=== PATIENT | female | born 1980 | race African-American/Black ===

== ENCOUNTER 2020-07-05 02:55 | Emergency (ER) | payer OTHER, SELFPAY ==
[2020-07-05 03:00] VITALS: BP 110/69; PULSE 85; RESP 20; TEMP 36.9; O2SAT 100
[2020-07-05] MEDS: SODIUM CHLORIDE 0.9% IV 1,000 ML 999 ML IV CONT (03:42)
--- NOTE | 2020-07-05 04:36 | ED_ITS ---
HPI - Anxiety General Chief Complaint: Anxiety Stated Complaint: anxiety Time Seen by Provider: 07/05/20 03:16 History of Present Illness HPI narrative: Patient is a 39-year-old female who presents the ER with anxiousness and shortness of breath. Patient reports she used an edible gummy tonight and then also had a couple drinks of tequila. She was at home sitting at her table when she became acutely short of breath and could not get herself calmed down. She has no chest pain. No fevers chills or sweats. She has not had any recent infectious symptoms. Reports symptoms are gradually improving now that she has been in EMS care. Related Data Allergies Allergy/AdvReac Type Severity Reaction Status Date / Time No Known Allergies Allergy Unverified 08/14/17 16:26 Review of Systems Review of Systems: All systems reviewed & are unremarkable except as noted in HPI and below Constitutional: Constitutional: Denies chills, Denies fever(s) and Denies weakness ENT: Denies nasal congestion and Denies sore throat Cardiovascular: Cardiovascular: Denies chest pain and Denies radiating jaw, neck or arm pain Respiratory: Respiratory: Denies cough, Reports dyspnea and Denies wheezing Psychiatric: Psychiatric: Reports anxiety and Denies depression PMFSH Past Medical History Medical History (Updated 07/05/20 @ 04:40 by Alcides Quintana MD) Healthy female adult Surgical History Surgical History (Updated 07/05/20 @ 04:38 by Alcides Quintana MD) H/O section Social History Social History (Updated 07/05/20 @ 04:39 by Alcides Quintana MD) Alcohol intake: current Substance use type: marijuana Exam Narrative: Exam Narrative: GENERAL: Well-appearing, well-nourished, and in no acute distress. HEAD: Normocephalic, atraumatic. ENT: Mucous membranes moist. CHEST: Clear to auscultation. No respiratory distress. HEART: Regular rate and rhythm. Normal peripheral pulses. EXTREMITIES: Normal range of motion. No edema. NEURO: Alert and oriented x3. PSYCH: Normal mood and affect. Course Course Emergency Course: Patient feels back to normal. She is hydrated for some borderline low blood pressures earlier in the evening. Patient's mother is here and should be discharged home. 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 Follow-up/Referrals: PHYSICIAN,TRIM CREW SUPERVISOR [Primary Care Provider] -
[2020-07-05 04:41] VITALS: BP 119/72; PULSE 89; RESP 18; O2SAT 100
== END 2020-07-05 04:59 | disposition home or self-care (01) ==
PROVIDERS: Emergency Provider Emergency Medicine
DX: F12.980 Cannabis use, unspecified with anxiety disorder (principal)
CPT/HCPCS: 96360; 99283; J7030

== ENCOUNTER 2022-02-10 11:53 | Emergency (ER) | payer OTHER, SELFPAY ==
[2022-02-10 12:02] VITALS: BP 138/94; PULSE 97; RESP 14; TEMP 36.6; O2SAT 99
--- NOTE | 2022-02-10 12:47 | ED.DENTAL ---
HPI - Dental/Oral General Chief complaint: Dental/Oral Stated complaint: headache/facial pain Time Seen by Provider: 02/10/22 12:26 Source: patient Mode of arrival: ambulatory Limitations: no limitations History of Present Illness HPI Narrative: Patient is 41 years old -[place] female presents with left upper dental pain started few days ago, getting worse. Patient denies any fever, chills, nausea, vomiting, headache. Or swelling. MD Complaint: tooth pain Teeth map: 1. Broken tooth surrounded by redness and tenderness of the gum Related Data Allergies Allergy/AdvReac Type Severity Reaction Status Date / Time No Known Allergies Allergy Unverified 08/14/17 16:26 Review of Systems Review of Systems: CONSTITUTIONAL: Denies fever, chills, or sweats. EYES: Denies visual changes, redness, or discharge. ENT: Denies rhinorrhea, congestion, sore throat, or otalgia. CARDIOVASCULAR: Denies chest pain, palpitations, or edema. RESPIRATORY: Denies cough or dyspnea. GASTROINTESTINAL: Denies abdominal pain, nausea, vomiting, or diarrhea. GENITOURINARY: Denies dysuria or hematuria. SKIN: Denies rash or itching. MUSCULOSKELETAL: Denies back pain, joint pain, or myalgia. NEUROLOGIC: Denies headache, numbness, or weakness. PSYCHIATRIC: Denies anxiety or depression. PMFSH Past Medical History Medical History Healthy female adult Surgical History Surgical History H/O section Social History Social History Alcohol intake: current Substance use type: marijuana Exam Narrative: General appearance: Well-developed, well-nourished Skin: Normal color Head: Normocephalic, nontraumatic Eyes: Clear conjunctiva ENT: Oropharynx normal, ears normal, nose normal Neurologic: Alert and oriented ?3, PSYCHIATRY INSTRUCTOR is normal as tested, no gross motor deficit Course Course Emergency Course: Stable Vital Signs Vital signs: Vital Signs Temperature 36.6 C 02/10/22 12:02 Pulse Rate 97 02/10/22 12:02 Respiratory Rate 14 02/10/22 12:02 Blood Pressure 138/94 H 02/10/22 12:02 Pulse Oximetry 99 02/10/22 12:02 Temperature 36.6 C 02/10/22 12:02 Pulse Rate 97 02/10/22 12:02 Respiratory Rate 14 02/10/22 12:02 Blood Pressure 138/94 H 02/10/22 12:02 Pulse Oximetry 99 02/10/22 12:02 Critical Care Time Critical Care Time Critical Care Time: No Discharge Plan Discharge Clinical Impression: Toothache Patient Disposition: Home, Self-Care Condition: Stable Instructions: Antibiotic Form, Toothache (ED) Additional Instructions: Return if symptoms are worsening , call dentist for appointment, take Tylenol as as needed for aches and pain, continue home medications. Prescriptions: New penicillin V potassium 500 mg tablet 500 mg PO Q6H Qty: 40 RF: 0 ibuprofen 800 mg tablet 800 mg PO TID PRN (Reason: pain) Qty: 20 RF: 0 Follow-up/Referrals: PHYSICIAN,COMPETITIVE INTELLIGENCE ANALYST [Primary Care Provider] - Stand Alone Forms: Work/School Release IP
[2022-02-10 12:55] VITALS: PULSE 84; RESP 16; O2SAT 98
== END 2022-02-10 12:57 | disposition home or self-care (01) ==
PROVIDERS: Emergency Provider Emergency Medicine
DX: K08.89 Other specified disorders of teeth and supporting structures (principal)
CPT/HCPCS: 99283

== ENCOUNTER 2022-05-16 11:34 | Emergency (ER) | payer OTHER, SELFPAY ==
[2022-05-16 11:53] VITALS: BP 132/78; PULSE 89; RESP 16; TEMP 36.8; O2SAT 100
--- NOTE | 2022-05-16 13:08 | ED.URI ---
HPI - URI/Sore Throat General Chief Complaint: Upper Respiratory Infection Stated Complaint: Cough,Congestion Time Seen by Provider: 05/16/22 12:43 Source: patient Mode of arrival: ambulatory Limitations: no limitations History of Present Illness HPI Narrative: Patient presents today with a 2 to 3-day history of sore throat, headache, cough. Reports COVID-19 exposure. Denies congestion, rhinorrhea, fever, shortness of breath. She has been using Chloraseptic cough drops with some relief of symptoms. She has not been vaccinated against COVID-19. Presents today with daughter with similar symptoms. Related Data Home Medications Medication Instructions Recorded Confirmed No Home Medications 05/16/22 05/16/22 Allergies Allergy/AdvReac Type Severity Reaction Status Date / Time No Known Allergies Allergy Verified 05/16/22 12:52 Review of Systems Review of Systems: CONSTITUTIONAL: Denies body aches, fever, chills, or sweats. EYES: Denies visual changes, redness, or discharge. ENT: Denies rhinorrhea, congestion, or otalgia.+ Sore throat CARDIOVASCULAR: Denies chest pain, palpitations, or edema. RESPIRATORY: Denies dyspnea.+ Cough GASTROINTESTINAL: Denies abdominal pain, nausea, vomiting, or diarrhea. GENITOURINARY: Denies dysuria or hematuria. SKIN: Denies rash, itching, or wounds. MUSCULOSKELETAL: Denies back pain, joint pain, or myalgia. NEUROLOGIC: Denies numbness, tingling, or weakness.+ Headache PSYCH: Denies depression or anxiety. PMFSH Past Medical History Medical History Healthy female adult Surgical History Surgical History H/O section Social History Social History Alcohol intake: current Substance use type: marijuana Comments At time of signature, I have reviewed and agree with nursing past medical, surgical, social and family history unless otherwise noted. Please see nursing chart for further information. There is no relevant family history pertinent to the presenting complaint Exam Narrative: GENERAL: Well-appearing, well-nourished, and in no acute distress. HEAD: Normocephalic, atraumatic. EYES: EOMI. No redness or drainage. Conjunctivae normal. ENT: Mucous membranes pink and moist. Nares clear. No rhinorrhea. TMs normal bilaterally. Throat normal. Uvula midline. NECK: Normal AROM. Supple. No lymphadenopathy. CHEST: No respiratory distress. Clear to auscultation. HEART: Regular rate and rhythm. No murmur appreciated. Normal peripheral pulses. EXTREMITIES: Normal range of motion. No edema. SKIN: Warm, dry, no rash. Capillary refill normal. Normal skin turgor. NEURO: No focal deficits. Alert and oriented x3. Gait steady. PSYCH: Normal affect. No signs of depression or anxiety. Course Course Level of Care: Express Care Visit Vital Signs Vital signs: Vital Signs Temperature 98.2 F 05/16/22 11:53 Pulse Rate 89 05/16/22 11:53 Respiratory Rate 16 05/16/22 11:53 Blood Pressure 132/78 05/16/22 11:53 Pulse Oximetry 100 05/16/22 11:53 Oxygen Delivery Room Air 05/16/22 11:53 Temperature 98.2 F 05/16/22 11:53 Pulse Rate 89 05/16/22 11:53 Respiratory Rate 16 05/16/22 11:53 Blood Pressure 132/78 05/16/22 11:53 Pulse Oximetry 100 05/16/22 11:53 Oxygen Delivery Room Air 05/16/22 11:53 Reviewed. Pt has been instructed to follow up with her PCP regarding her elevated blood pressure today. MDM - URI/Sore Throat Differential Diagnosis Differential diagnosis: Likely upper respiratory infection, viral infection, pharyngitis and other (Strep throat, COVID-19) Lab Data Attestation: I reviewed the patient's lab results. Labs: Lab Results 05/16/22 Range/Units 12:50 POC SARS CoV-2 Ag Positive (Negative) Critical Care Time Critical C
== END 2022-05-16 13:14 | disposition home or self-care (01) ==
PROVIDERS: Emergency Provider Nurse Practitioner
DX: U07.1 COVID-19 (principal)
CPT/HCPCS: 87426; 99213; C9803; G0463